=== PATIENT | male | born 1940 | race African-American/Black ===

== ENCOUNTER 2019-07-21 11:10 | Observation (INO) | payer OTHER ==
--- NOTE | 2019-07-21 12:29 | RAD REPORT ---
EXAM DESCRIPTION: RAD - Chest Single View - 07/21/2019 12:09 pm CLINICAL HISTORY: CHEST PAIN COMPARISON: None TECHNIQUE: AP portable chest image was obtained 07/21/2019 12:09 pm . FINDINGS: No focal mass or consolidation. No failure or volume overload. Interstitial pattern is mil dly prominent but may be baseline for the patient. Heart and vasculature are normal. No measurable pl eural effusion and no pneumothorax. No acute bony abnormality seen. No acute aortic findings suspecte d. IMPRESSION: No focal acute cardiopulmonary process. Interstitial prominence is mild and may be baseline.
[2019-07-21] MEDS ORDERED: NA CHLORIDE 0.9% 1,000 ML ONE (12:32)
[2019-07-21 12:51] LABS: Absolute Lymphocytes (CBC) 1.9 K/uL (0.7-4.9); Basophils % 0.5 % (0-1.3); Hematocrit 41.6 % (39.6-49.0); Lymphocytes % 21.5 % (15.3-44.8); MPV 9.1 fL (7.6-11.3)
[2019-07-21 13:10] LABS: ALT/SGPT 16 U/L (12-78); AST/SGOT 41 U/L (15-37); Albumin 3.4 g/dL (3.4-5.0); Alkaline Phosphatase 113 U/L (45-117); BUN Blood Urea Nitrogen 59 mg/dL (7-18); Bicarbonate 29 mmol/L (21-32); Bilirubin Direct 0.2 mg/dL (0-0.2); Bilirubin Total 0.6 mg/dL (0.2-1.0); Glucose Level 182 mg/dL (74-106); NT PRO-BNP 294 pg/mL (<450); Potassium 3.9 mmol/L (3.5-5.1); Protein, Total 8.2 g/dL (6.4-8.2); Sodium Level 145 mmol/L (136-145); Troponin (Emerg Dept Use Only) < 0.02 ng/mL (0.0-0.045)
--- NOTE | 2019-07-21 14:39 | EDPHYS ---
Physician Documentation [facility] Name: Hernan Harvey Age: 78 yrs Sex: Male : 1940 Arrival Date: 07/21/2019 Time: 11:14 Bed 6 Private MD: Felecia Ho F ED Physician Valentino Gann HPI: 07/20 11:45 This 78 yrs old Black Male presents to ER via Wheelchair with complaints of Chest Pain. rn 11:45 The patient or guardian reports chest pain that is located primarily in the substernal rn area. 11:46 Onset: 6 day(s) ago. rn 11:46 The pain radiates to back. Associated signs and symptoms: The patient has no apparent rn associated signs or symptoms, Pertinent negatives: abdominal pain, cough, diaphoresis, near syncope, shortness of breath, syncope, vomiting. Duration: The patient or guardian reports multiple episodes, that are intermittent. Modifying factors: The symptoms are alleviated by nothing. the symptoms are aggravated by nothing. Severity of pain: At its worst the pain was moderate in the emergency department the pain has improved. The patient has not experienced similar symptoms in the past. Reports substernal chest pain, shoots around chest and goes to midscapular region, no recent trauma, neg for fever/cough. Reports + sob with exertion. No swelling. No known heart attack or heart problems. No abd pain/vomiting/diarrhea. . Historical: - Allergies: 11:34 No Known Allergies; ss - PMHx: 11:34 Hypertension; Diabetes - NIDDM; ss - PSHx: 11:34 Hernia repair; ss - Immunization history:: Adult Immunizations up to date. - Social history:: Smoking status: Patient denies any tobacco usage or history of. - Family history:: not pertinent. - Hospitalizations: : No recent hospitalization is reported. ROS: 11:46 Constitutional: Negative for fever, chills, and weight loss, Eyes: Negative for injury, rn pain, redness, and discharge, Cardiovascular: + chest pain and sob Respiratory: Negative for cough, wheezing, and pleuritic chest pain, Abdomen/GI: Negative for abdominal pain, nausea, vomiting, diarrhea, and constipation, Back: Negative for injury and pain, MS/Extremity: Negative for injury and deformity, Skin: Negative for injury, rash, and discoloration, Neuro: Negative for headache, weakness, numbness, tingling, and seizure. Exam: 11:46 Constitutional: Thin male, no acute distress Head/Face: Normocephalic, atraumatic. 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 No cyanosis. Respiratory: Mild tachypnea with diminished bilateral breath sounds at bases. Abdomen/GI: soft, non-tender. Skin: Warm, dry, + poor skin turgor. MS/ Extremity: Pulses equal, no cyanosis. Neurovascular intact. Full, normal range of motion. Equal circumference. Neuro: Awake and alert, GCS 15, oriented to person, place, time, and situation. Cranial nerves II-XII grossly intact. Motor strength 4/5 in all extremities. Sensory grossly intact. Unable to stand from seated position without help 12:04 ECG was reviewed by the Attending Physician. rn Vital Signs: 11:32 BP 103 / 61; Pulse 117; Resp 19; Temp 97.0(TE); Pulse Ox 99% on R/A; Weight 77.11 kg; ss Height 5 ft. 10 in. (177.80 cm); Pain 6/10; 12:15 BP 113 / 80; Pulse 115; Resp 19; Pulse Ox 100% ; lt1 13:22 BP 104 / 76; Pulse 108; Resp 18; Pulse Ox 100% on R/A; em 14:31 BP 132 / 87; Pulse 111; Resp 16; Pulse Ox 99% ; hb 15:27 BP 111 / 87; Pulse 110; Resp 16; Pulse Ox 97% on R/A; Pain 0/10; ss 11:32 Body Mass Index 24.39 (77.11 kg, 177.80 cm) MDM: 11:39 Patient medically screened. rn 14:36 Differential diagnosis: acute myocardial infarction, acute pericarditis, coronary rn artery disease chest wall pain, costochondritis, pleurisy, pneumothorax, stable angina, unstable angina. The patient was given aspirin in the Emergency Department. 14:37 Data reviewed: vital signs, nurses notes, lab test result(s), EKG, radiologic studies, rn plain films, and as a result, I will admit patient. Counseling: I had a detailed discussion with the patient and/or guardian regarding: the historical points, exam findings, and any diagnostic results supporting the discharge/admit diagnosis, lab results, radiology results, the need for further work-up and treatment in the hospital. Admission orders: after a detailed discussion of the patient's condition and case, the admit orders are written by me. ED course: Pt without acute findings in ER, will admit to Dr. Ho for further testing and cardiology consult.. 07/20 11:45 Order name: Basic Metabolic Panel; Complete Time: 14:36 rn 07/20 11:45 Order name: CBC with Diff; Complete Time: 13:03 rn 07/20 11:45 Order name: LFT's; Complete Time: 14:36 rn 07/20 11:45 Order name: NT PRO-BNP; Complete Time: 14:36 rn 07/20 11:45 Order name: Troponin (emerg Dept Use Only); Complete Time: 14:36 rn 07/20 11:45 Order name: XRAY Chest (1 view); Complete Time: 12:34 07/20 11:45 Order name: EKG; Complete Time: 11:45 rn 07/20 11:45 Order name: Cardiac monitoring; Complete Time: 11:56 rn 07/20 11:45 Order name: EKG - Nurse/Tech; Complete Time: 12:16 07/20 11:45 Order name: IV Saline Lock; Complete Time: 12:16 07/20 11:45 Order name: Labs collected and sent; Complete Time: 12:16 07/20 11:45 Order name: O2 Per Protocol; Complete Time: 11:56 rn 07/20 11:45 Order name: O2 Sat Monitoring; Complete Time: 11:56 rn EC:04 Rate is 113 beats/min. Rhythm is regular. QRS [place] is Normal. OR interval is normal. rn QRS interval is normal. QT interval is normal. No Q waves. T waves are Normal. No ST changes noted. Clinical impression: Sinus tachycardia. Interpreted by me. Reviewed by me. Administered Medications: 12:29 Drug: NS 0.9% 250 ml Route: IV; Rate: bolus; Site: left antecubital; em 13:00 Follow up: IV Status: Completed infusion; IV Intake: 250ml hb 15:00 Follow up: IV Status: Completed infusion ss 15:24 Drug: NS 0.9% 250 ml Route: IV; Rate: bolus; Site: left antecubital; 15:42 Follow up: IV Status: Completed infusion; IV Intake: 250ml hb 15:24 Drug: Aspirin Chewable Tablet 324 mg Route: PO; ss 15:40 Follow up: Response: No adverse reaction hb Disposition: 07/21/19 14:38 Hospitalization ordered by Felecia Ho for Observation. Preliminary diagnosis are Chest pain, unspecified, Dehydration, Hypercalcemia. - Bed requested for Telemetry/MedSurg (observation). - Status is Observation. ss - Condition is Stable. - Problem is new. - Symptoms have improved. Signatures: Dispatcher [employer] EDMS Slime Da Silva Edgar, RN SERGEI em Valentino Gann MD MD rn Smirch, Shelby, RN RN ss Rubina Bridges RN Corrections: (The following items were deleted from the chart) 14:38 14:38 Hospitalization Ordered by Felecia Ho MD for Observation. Preliminary rn diagnosis is Chest pain, unspecified; Dehydration. Bed requested for Telemetry/MedSurg (observation). Status is Observation. Condition is Stable. Problem is new. Symptoms have improved. rn 15:17 14:38 07/21/2019 14:38 Hospitalization Ordered by Felecia Ho MD for Observation. bd Preliminary diagnosis is Chest pain, unspecified; Dehydration; Hypercalcemia. Bed requested for Telemetry/MedSurg (observation). Status is Observation. Condition is Stable. Problem is new. Symptoms have improved. rn 15:42 15:17 07/21/2019 14:38 Hospitalization Ordered by Felecia Ho MD for Observation. ss Preliminary diagnosis is Chest pain, unspecified; Dehydration; Hypercalcemia. Bed requested for Telemetry/MedSurg (observation). Status is Observation. Condition is Stable. Problem is new. Symptoms have improved. bd
--- NOTE | 2019-07-21 14:39 | ER ---
Nurse's Notes [facility] Name: Hernan Harvey Age: 78 yrs Sex: Male : 1940 Arrival Date: 07/21/2019 Time: 11:14 Bed 6 Private MD: Felecia Ho F Diagnosis: Chest pain, unspecified;Dehydration;Hypercalcemia Presentation: 07/20 11:32 Chief complaint: Patient states: Sent by Dr. Ho for further evaluation of ss intermittent CP and upper back pain x 6 days. Coronavirus screen: Proceed with normal triage. Patient denies a cough. Patient denies shortness of breath or difficulty breathing. Patient denies measured and/or subjective temperature greater than 100.4F prior to today's visit. Patient denies travel on a cruise ship or to a country the [facility]NOTE 3] currently lists as an affected area. Patient denies contact with known and/or suspected case of COVID-19. Ebola Screen: Patient denies exposure to infectious person. Patient denies travel to an Ebola-affected area in the 21 days before illness onset. Initial Sepsis Screen: Does the patient meet any 2 criteria? No. Patient's initial sepsis screen is negative. Does the patient have a suspected source of infection? No. Patient's initial sepsis screen is negative. Risk Assessment: Do you want to hurt yourself or someone else? Patient reports no desire to harm self or others. Onset of symptoms was July 16, 2019. 11:32 Method Of Arrival: Wheelchair ss 11:32 Acuity: TABATHA 3 ss Historical: - Allergies: 11:34 No Known Allergies; ss - PMHx: 11:34 Hypertension; Diabetes - NIDDM; ss - PSHx: 11:34 Hernia repair; ss - Immunization history:: Adult Immunizations up to date. - Social history:: Smoking status: Patient denies any tobacco usage or history of. - Family history:: not pertinent. - Hospitalizations: : No recent hospitalization is reported. Screenin:00 Abuse screen: Denies threats or abuse. Nutritional screening: No deficits noted. em Tuberculosis screening: No symptoms or risk factors identified. Fall Risk Ambulatory Aid- Crutches/Cane/Walker (15 pts). Gait- Weak (10 pts.). Total Davey Fall Scale indicates Low Risk Score (25-44 pts). Side Rails Up X 2 Placed close to Nursing Station. Assessment: 13:22 Reassessment: Patient appears in no apparent distress at this time. Patient and/or em family updated on plan of care and expected duration. Pain level reassessed. Patient is alert, oriented x 3, equal unlabored respirations, skin warm/dry/pink. Patient denies pain at this time. 14:26 Also complains of. Reassessment: Patient appears in no apparent distress at this time. hb Patient and/or family updated on plan of care and expected duration. Pain level reassessed. Patient is alert, oriented x 3, equal unlabored respirations, skin warm/dry/pink. 15:28 Reassessment: Patient appears in no apparent distress at this time. Patient and/or ss family updated on plan of care and expected duration. Pain level reassessed. Patient is alert, oriented x 3, equal unlabored respirations, skin warm/dry/pink. Room has been assigned for admission. Pt is awaiting for Dr. Gann to speak with him about plan of care. Vital Signs: 11:32 BP 103 / 61; Pulse 117; Resp 19; Temp 97.0(TE); Pulse Ox 99% on R/A; Weight 77.11 kg; ss Height 5 ft. 10 in. (177.80 cm); Pain 6/10; 12:15 BP 113 / 80; Pulse 115; Resp 19; Pulse Ox 100% ; lt1 13:22 BP 104 / 76; Pulse 108; Resp 18; Pulse Ox 100% on R/A; em 14:31 BP 132 / 87; Pulse 111; Resp 16; Pulse Ox 99% ; hb 15:27 BP 111 / 87; Pulse 110; Resp 16; Pulse Ox 97% on R/A; Pain 0/10; ss 11:32 Body Mass Index 24.39 (77.11 kg, 177.80 cm) ED Course: 11:14 Patient arrived in ED. mr 11:14 Felecia Ho MD is Private Physician. mr 11:33 Triage completed. ss 11:34 Arm band placed on right wrist. ss 11:39 Valentino Gann MD is Attending Physician. rn 11:56 Rubina Bridges RN is Primary Nurse. hb 12:00 Patient has correct armband on for positive identification. Placed in gown. Bed in low em position. Call light in reach. Adult w/ patient. teletypesetter monitor on. Pulse ox on. NIBP on. 12:00 Patient maintains SpO2 saturation greater than 95% on room air. em 12:09 XRAY Chest (1 view) In Process Unspecified. EDMS 12:15 Initial lab(s) drawn, by me, sent to lab. Inserted saline lock: 22 gauge in left lt1 antecubital area, using aseptic technique. 13:19 Notified ED physician of a critical lab result(s). calcium-13.1. sv 14:38 Felecia Ho MD is Hospitalizing Provider. rn 15:40 No provider procedures requiring assistance completed. Patient admitted, IV remains in ss place. Administered Medications: 12:29 Drug: NS 0.9% 250 ml Route: IV; Rate: bolus; Site: left antecubital; em 13:00 Follow up: IV Status: Completed infusion; IV Intake: 250ml hb 15:00 Follow up: IV Status: Completed infusion ss 15:24 Drug: NS 0.9% 250 ml Route: IV; Rate: bolus; Site: left antecubital; ss 15:42 Follow up: IV Status: Completed infusion; IV Intake: 250ml hb 15:24 Drug: Aspirin Chewable Tablet 324 mg Route: PO; ss 15:40 Follow up: Response: No adverse reaction hb Intake: 13:00 IV: 250ml; Total: 250ml. hb 15:42 IV: 250ml; Total: 500ml. hb Outcome: 14:38 Decision to Hospitalize by Provider. rn 15:40 Admitted to Tele accompanied by [facility], via stretcher, room 204, with chart, Report ss called to SERGEI [place] 15:40 Condition: good 15:40 Instructed on the need for admit, Demonstrated understanding of instructions. 15:42 Patient left the ED. ss Signatures: Dispatcher [employer] EDMS Aidee Rodrigues RN RN sv Rivera, Mary mr Munoz, Edgar RN Valentino Gonzalez MD MD rn Smirch, Shelby, RN RN ss Baxter, Heather, RN RN hb Tran, Leah lt1
[2019-07-21] MEDS ORDERED: ASPIRIN 81 MG CHEWABLE TABLET ONE (15:17)
[2019-07-21] MEDS ORDERED: NA CHLORIDE 0.9% 250 ML ONE (15:18)
[2019-07-21 16:10] VITALS: BMI 24.3
[2019-07-21] MEDS ORDERED: ONDANSETRON 4 MG/2 ML VIAL IV PRN (16:10)
[2019-07-21] MEDS: NA CHLORIDE 0.9% 1,000 ML IV SCH (17:21)
[2019-07-21] MEDS ORDERED: PNEUMOCOCCAL VACCINE 0.5 ML IMVAC ONE (21:00)
[2019-07-21] MEDS ORDERED: MAGNESIUM HYDROXIDE 8% 30 ML PO ONE (22:00)
[2019-07-21] MEDS ORDERED: CLONIDINE 0.3 MG/PATCH TD ONE (22:54)
--- NOTE | 2019-07-22 01:48 | HP ---
Date of Admission: 07/21/2019 History Of Present Illness: A 78-year-old male with multiple medical problems including coronary art kar disease. He has been having, what he describes as, chest pain across his chest for about 2 weeks now, comes off and on, would stay for minutes or hours. However, he said also it is sometimes relat ed to his position, if he is lying down or standing up gives him relief. He also said that he has be en having more shortness of breath on activity like walking half a block or so he could get short of breath. He also had a complaint of low back pain in the lumbosacral area, more on the left, but no o ther radiation. The patient voiced no other complaints. Review of Systems: Cardiovascular: No palpitations, no dizziness. Respiratory: As above. Skeletomuscular: As above. Gastrointestinal: No complaints. Genitourinary: No complaints. Neurological: No complaints. Past Medical History: 1.Hypertension. 2.Type 2 diabetes. 3.Hyperlipidemia. 4.Coronary artery disease. 5.Multiple osteoarthritis. 6.Chronic obstructive pulmonary disease. 7.History of prostate cancer for which he followed with Dr. Reynolds. Allergies: NO KNOWN DRUG ALLERGIES. Social History: He stopped smoking. Denies alcohol or IV drug abuse history. Family History: Noncontributing. Medications: Include, atorvastatin 20 mg p.o. daily, benazepril 10 mg p.o. daily, amlodipine 5 mg p. o. daily, clonidine 0.3 mg, q.24 hours, hydrochlorothiazide 12.5 mg p.o. daily, potassium chloride 10 mEq p.o. daily, meloxicam 7.5 mg b.i.d. p.r.n. Physical Examination: Vital Signs: Blood pressure 113/80, pulse 110, pulse oximetry more than 90% on 100% O2. General: The patient was afebrile. Heart: Tachycardic, regular rate and rhythm. Chest: Clear to auscultation. Abdomen: Soft, nontender. No hepatosplenomegaly. Bowel sounds normoactive. Extremities: No edema. No cyanosis. Peripheral pulses are felt. Neurological: Alert, oriented, nonfocal. Grossly intact. Spine: No tenderness in his lumbar spine. The patient was using a wheelchair for his low back pain and has osteoarthritis multiple. Imaging: Chest x-ray, no acute pathology. EKG reported to me by ER physician is sinus tachycardia. CBC noted. Chemistry; BUN 59, creatinine 1.73, glucose 135, calcium 13.1. Assessment And Plan: 1.Chest pain in the precordial area. Patient sees Cardiology, will draw serial cardiac enzymes. Th e stress test was negative and we will repeat EKG. We will follow Cardiology recommendations. 2.Volume depletion, evident by increased BUN and creatinine ratio on high calcium. The patient has been put on normal saline at 75 mg an hour. We will resume his home medications for his chronic medi brianda illnesses, put the patient on oxygen protocol. Repeat his labs in the morning. Look orders for details. MFS/MODL Voice ID: [id number]
[2019-07-22 04:20] LABS: Absolute Lymphocytes (CBC) 2.1 K/uL (0.7-4.9); Basophils % 0.8 % (0-1.3); Hematocrit 34.4 % (39.6-49.0); Lymphocytes % 23.3 % (15.3-44.8); MPV 9.1 fL (7.6-11.3); RBC Red Blood Cell Count 4.03 M/uL (4.33-5.43)
[2019-07-22 04:43] LABS: Potassium 3.5 mmol/L (3.5-5.1)
[2019-07-22 05:09] LABS: Blood Morphology Comment NOTED (NOT SEEN); Burr Cells 2+; Platelet Estimate DECR; Urine White Blood Cell Casts OK
[2019-07-22] MEDS: NA CHLORIDE 0.9% 1,000 ML IV SCH (05:44)
--- NOTE | 2019-07-22 07:02 | EKG ---
Test Date: 2019-07-21 Test Time: 12:03:33 Continuous Improvement Lead: FELY MEASUREMENT RESULTS: Intervals: Rate: 113 MI: 126 QRSD: 72 QT: 342 QTc: 469 [place]: P: 64 MI: 126 QRS: 15 T: 71 INTERPRETIVE STATEMENTS: Sinus tachycardia Otherwise normal ECG Compared to ECG 10/25/2005 12:55:29 Sinus rhythm no longer present Myocardial infarct finding no longer present Electronically Signed On 07-22-19 07:00:14 CDT by Goldy Bowden
[2019-07-22] MEDS ORDERED: REGADENOSON 0.4 MG/5 ML SYR IV ONE (08:17)
[2019-07-22] MEDS ORDERED: ASPIRIN EC 81 MG TAB PO SCH (09:00)
--- NOTE | 2019-07-22 09:54 | RAD REPORT ---
EXAM DESCRIPTION: NM - Rest Stress Cardiac Imaging - 07/22/2019 9:42 am CLINICAL HISTORY: Chest pain. COMPARISON: None. TECHNIQUE: The patient was administered approximately 10mCi of Tc 99m Sestamibi prior to resting SPE CT imaging of the heart. The patient was then administered approximately 30 mCi of Tc 99m Sestamibi f ollowing exercise or pharmacologic stress. Multiplanar SPECT images were reviewed. FINDINGS: There is uniformity of radiotracer uptake involving the entire left ventricular myocardiu m on rest and stress images. The left ventricular ejection fraction equals 65% IMPRESSION: Negative for a myocardial perfusion defect
[2019-07-22 12:26] VITALS: BP 140/73; TEMP 97.8
[2019-07-22 12:55] VITALS: O2SAT 100
--- NOTE | 2019-07-22 14:32 | TREADPHA ---
DX: CHEST PAIN Date of Study: 07/22/2019 Ht: 5' 10 " Wt: 170 lb 0 oz Consulting Physician: CYNTHIA MEDICATIONS: ASPIRIN, CATAPRES, ZOFRAN HISTORY: 78 YEAR OLD MALE WITH COMPLAINTS OF CHEST PAIN. HISTORY OF DIABETES, SMOKES ONE CIGARETTE DAILY, NON DRINKER. PHYSICIAL EXAMINATION: RESTING B.P.: 140/103 RESTING H.R.: 109 RESTING EKG: NORMAL SINUS RHYTHM PROTOCOL: LEXISCAN EXERCISE TIME: 3:30 B.P. AT [place]AK STRESS: 134/71 IMPRESSION: LEXISCAN INJECTED, FOLLOWED BY CARDIOLITE PER PROTOCOL. SEE NUCLEAR MEDICINE REPORT. NO SUPRAVENTRICULAR TACHYCARDIA, VENTRICULAR TACHYCARDIA, PREMATURE ATRIAL COMPLEXES OR PREMATURE VENTRICULAR COMPLEXES NOTED. PATIENT REPORTED 5/10 CHEST PAIN PRIOR TO PROCEDURE.
--- NOTE | 2019-07-22 23:21 | CON ---
Date of Consultation: 07/22/2019 The patient was admitted to Dr. Ho's service on 07/21/2019. Reason For Consultation: Chest pain and hypertension. History Of Present Illness: Mr. Harvey is a 78-year-old black male, has a history of hypertension, diabetes, dyslipidemia, came in with diffuse chest pain throughout his chest, but sometime it would r adiate to the back into the left shoulder with some nausea, but no diaphoresis, shortness of breath, PND, orthopnea, pedal edema, palpitations, or syncope. He denied any fever or chills or cough. Symp toms have been going on intermittently for few days. He was found to have a normal chest x-ray. EKG showed LVH. Creatinine was 1.73. He had a calcium of 13.1. Past Medical History: Includes hypertension, dyslipidemia, and diabetes. Allergies: NONE. Review of Systems: Negative. Social History: Negative. Family History: Negative. Medications: At home include, 1.Lipitor. 2.Norvasc. 3.Benazepril. 4.Mobic. 5.Potassium. 6.Clonidine. 7.Hydrochlorothiazide. Physical Examination: Vital Signs: Stable. He was afebrile. He was in sinus rhythm. HEENT: Negative. Neck: Supple without any bruit, lymphadenopathy, JVD, or thyromegaly. Chest: Clear to auscultation and percussion. Cardiac: Revealed a regular rhythm and rate with an S4 gallops. No murmurs or rubs. Abdomen: Benign. Extremities: Revealed no clubbing, cyanosis, or edema. Skin: Dry and intact. Neurologic: Nonfocal. Impression And Plan: 1.Chest pain, atypical in a patient with multiple cardiac risk factors. Echocardiogram and Lexiscan are pending. 2.Hypertension, poorly controlled. 3.Dyslipidemia, on Lipitor. 4.Diabetes. 5.Hypercalcemia. 6.Renal insufficiency, stage III. 7.We will see what the echocardiogram and Lexiscan shows before making further decision from a cardi ac standpoint. His renal dysfunction needs to be addressed. His calcium needs to be addressed and I will leave that up to Dr. Ho. NB/MODL Voice ID: [id number] Report ID: [id number]
--- NOTE | 2019-07-23 03:02 | DS ---
Date of Discharge: 07/22/2019 Hospital Course: A 78-year-old male who was admitted to the hospital because of a complaint of chest pain across his chest for about 2 weeks. He also been having some chronic flare-up of osteoarthriti s pain and low back pain and has been feeling weak and fatigued. Past Medical History: As per admit note. Social History: As per admit note. Family History: As per admit note. Medications: As per admit note. Allergies: PER ADMIT NOTE. Physical Examination: As per admit note. Diagnostic Data: As per admit note. Hospital Course: The patient was admitted to the hospital observation for his complaint of chest jean paul n being high risk because of history of chronic disease in the past. We kept him on his home medicat ions for his chronic medical illnesses. Serial cardiac enzymes were negative. Dr. Bowden seen the patient and they did a stress Myoview test on his heart. Result of that was no ischemia. The patien t himself did not have any more complaints; however, also his chest pain even is not there this marileeni rani and he is feeling well. At this point, we thought we can carry on management with the patient as an outpatient. Also his weakness and fatigue were thought to be secondary to volume depletion evident by prerenal azotemia and failure. We put him on IV fluids and that improved his kidney functions wi th a gap this morning showing a BUN of 59 and creatinine 1.35. As mentioned, we will carry on workup for his low back pain and other complaints as an outpatient. The patient will see me within a day o r 2. I stopped his hydrochlorothiazide and potassium because he was dry, kept him on the rest of his home medications. We thought if it is okay with Cardiology, we will go ahead and discharge the patient. Look discharge orders for details. MFS/MODL Voice ID: [id number] Report ID: [id number]
[2019-07-28] MEDS ORDERED: CLONIDINE 0.3 MG/PATCH TD SCH (09:00)
== END 2019-07-22 13:23 | disposition home or self-care (01) ==
LOC: ER 11:10 → ERHOLD 14:51 → 2ND 15:41
PROVIDERS: ADMIT Internal Medicine; ATTEND Internal Medicine
DX: R07.89 Other chest pain (principal); E83.52 Hypercalcemia; E86.0 Dehydration; I10 Essential (primary) hypertension; E78.5 Hyperlipidemia, unspecified; E11.9 Type 2 diabetes mellitus without complications; I25.10 Atherosclerotic heart disease of native coronary artery without angina pectoris; M15.9 Polyosteoarthritis, unspecified; J44.9 Chronic obstructive pulmonary disease, unspecified; Z85.46 Personal history of malignant neoplasm of prostate; Z87.891 Personal history of nicotine dependence
CPT/HCPCS: 93005; 93017; 85025 ×2; 80048 ×2; 36415; 82947 ×4; 80076; 84484 ×3; 83880; 71045; 90471; 90670; 78452; 96360; 99285; J2785; J7030 ×4; A9500; G0378 ×3

== ENCOUNTER 2019-07-28 12:32 | Observation (INO) | payer OTHER ==
[2019-07-28 13:08] LABS: Absolute Lymphocytes (CBC) 1.7 K/uL (0.7-4.9); Basophils % 0.8 % (0-1.3); Hematocrit 36.2 % (39.6-49.0); Lymphocytes % 21.4 % (15.3-44.8); MPV 8.6 fL (7.6-11.3); RBC Red Blood Cell Count 4.26 M/uL (4.33-5.43)
[2019-07-28] MEDS ORDERED: FLEET ENEMA ADULT PR ONE (13:13)
[2019-07-28] MEDS ORDERED: NA CHLORIDE 0.9% 500 ML ONE ×2 (13:14→14:52)
[2019-07-28 13:27] LABS: ALT/SGPT 14 U/L (12-78); AST/SGOT 24 U/L (15-37); Alkaline Phosphatase 99 U/L (45-117); BUN Blood Urea Nitrogen 26 mg/dL (7-18); Bicarbonate 27 mmol/L (21-32); Bilirubin Direct 0.3 mg/dL (0-0.2); Bilirubin Total 0.8 mg/dL (0.2-1.0); Glucose Level 98 mg/dL (74-106); Lipase 19 U/L (73-393); Potassium 3.2 mmol/L (3.5-5.1); Protein, Total 7.1 g/dL (6.4-8.2); Sodium Level 138 mmol/L (136-145)
[2019-07-28] MEDS ORDERED: POTASSIUM CL 10 MEQ in NA CHLORIDE 0.9% 100 ML IV ONE (14:30)
--- NOTE | 2019-07-28 15:30 | RAD REPORT ---
EXAM DESCRIPTION: CTAbdomen Pelvis W Contrast - 07/28/2019 3:03 pm CLINICAL HISTORY: Abdominal pain. Constipation;Abdominal distention COMPARISON: Chest Single View dated 07/21/2019; Rest Stress Cardiac Imaging dated 07/22/2019; Lumbar S pine 3 Views dated 07/25/2019 TECHNIQUE: Biphasic CT imaging of the abdomen and pelvis was performed with 100 ml non-ionic IV cont rast. All CT scans are performed using dose optimization technique as appropriate and may include automated exposure control or mA/KV adjustment according to patient size. FINDINGS: Linear subsegmental atelectasis is present in both lung bases, greater on the right. The pancreas contains several small rounded low-density lesions most compatible with cysts. The splee n is unremarkable. Pancreas is mildly atrophic without ductal dilatation. A large left adrenal mass i s present measuring 2.8 x 3.7 cm. Right hip adrenal gland is mildly thickened but without mass. Compl ex cystic lesions are present involving both kidneys. Complex cystic lesion right kidney anterior sup erior cortex measures 12 mm. Similar complex cystic lesion is seen involving the posterior cortex of the left kidney measuring 3.1 x 2.0 cm. Additional complex appearing cortical based lesion on the lef t kidney measures 10 mm and inferiorly posteriorly measuring 2.0 x 1.9 cm. Adenopathy is present in the retroperitoneum. For example left para-aortic lymphadenopathy is present measuring 2.7 x 2.7 cm aortocaval adenopathy is present slightly more inferiorly measuring 3.7 x 2.0 cm. Right para-aortic adenopathy is present measuring 2.2 x 1.3 cm. Infrarenal aortic aneurysm is pr esent measuring 5.6 cm in transverse dimension. Aneurysmal dilatation of the right common iliac arter y is also present measuring 3.9 cm. The aneurysms in this region as well as the soft tissue from para -aortic lymphadenopathy appears to result in significant mass effect on the left common iliac vein. T here is somewhat poorly defined filling defect within the left femoral vein which appears expanded. C annot exclude DVT in this region. Lymphadenopathy is present involving the left pelvic sidewall measuring 5.6 x 2.7 cm. Mild adenopathy right pelvic sidewall also present the largest measuring 9 mm in short axis. The prostate gland is s ignificantly enlarged and projects into the bladder base. Small amount of air seen within the bladder . Prominent stool is retained in the rectosigmoid colon with diverticulosis coli noted. No free air or bowel obstruction. No abscess. Small right-sided inguinal hernia containing small loop of small bowel seen without obstruction. Normal appendix. Bony metastatic disease is present with multiple bone lesions evident, most notable in the right dennise c wing, vertebral bodies and right-sided ribs. IMPRESSION: Pathologic lymphadenopathy is present in the retroperitoneum as well as the pelvic sidew all. Bony metastatic lesions are also present along with a high suspicion of a metastatic left adrena l mass. Although primary neoplastic lesion is not definitive, prostate origin may be considered given the lily y significant enlargement of the prostate gland identified. PSA correlation may be useful. Air is present in the urinary bladder is likely representing infection or recent instrumentation. Possible findings of left-sided DVT. Correlation with bilateral venous Doppler of the lower extremity venous systems is recommended. Large infrarenal abdominal aortic aneurysm with right common iliac artery aneurysm. No acute finding related to these aneurysms seen. Bilateral complex cystic renal lesions are present as detailed. Nonemergent follow-up MRI assessment of the kidneys with contrast may be useful. Prominent stool is noted in the rectosigmoid colon with the sigmoid diverticulosis present. No divert iculitis is seen.
[2019-07-28 16:50] LABS: Anisocytosis 1+; Blood Morphology Comment NOTED (NOT SEEN); Platelet Estimate DECR; Poikilocytosis 1+
[2019-07-28] MEDS ORDERED: ENOXAPARIN 80 MG/0.8 ML SQ ONE (17:37)
--- NOTE | 2019-07-28 17:39 | RAD REPORT ---
EXAM DESCRIPTION: US - Extrem Venous W Compress Eulogio - 07/28/2019 5:29 pm CLINICAL HISTORY: rule out DVT Bilateral leg edema and swelling. COMPARISON: Abdomen Pelvis W Contrast dated 07/28/2019 TECHNIQUE: Real-time sonographic interrogation of the left and right lower extremity deep venous sys tems was performed. FINDINGS: Thrombus is present in the left common femoral vein popliteal vein compatible with DVT. No right-sided DVT seen. IMPRESSION: Positive for left-sided DVT.
[2019-07-28] MEDS ORDERED: ONDANSETRON 4 MG/2 ML VIAL IV PRN (20:01)
[2019-07-28 20:51] VITALS: BMI 20.8
[2019-07-28] MEDS: NA CHLORIDE 0.9% 1,000 ML IV SCH (21:13)
[2019-07-29 05:37] LABS: Basophils % 1.4 % (0-1.3); Hematocrit 32.9 % (39.6-49.0); Lymphocytes % 26.1 % (15.3-44.8); MPV 8.8 fL (7.6-11.3); RBC Red Blood Cell Count 3.84 M/uL (4.33-5.43)
[2019-07-29] MEDS: ENOXAPARIN 80 MG/0.8 ML SQ SCH ×3 (05:55→20:17)
[2019-07-29] MEDS: NA CHLORIDE 0.9% 1,000 ML IV SCH ×2 (05:58→16:01)
[2019-07-29 06:01] LABS: BUN Blood Urea Nitrogen 21 mg/dL (7-18); Bicarbonate 25 mmol/L (21-32); Glucose Level 81 mg/dL (74-106); Sodium Level 140 mmol/L (136-145)
[2019-07-29 06:02] LABS: Potassium 3.7 mmol/L (3.5-5.1)
[2019-07-29] MEDS: CLONIDINE 0.1 MG/PATCH TD SCH ×2 (17:00→18:14)
[2019-07-29] MEDS: ENSURE CLEAR 200 ML CAN PO SCH (20:18)
[2019-07-29] MEDS ORDERED: ATORVASTATIN 20 MG TAB PO SCH (21:00)
--- NOTE | 2019-07-29 22:01 | HP ---
Date of Admission: 07/28/2019 History Of Present Illness: The patient is a 79-year-old male who presented to the emergency room wi th abdominal discomfort and pain for few days. He said he has been constipated for about 10 days, brush radhika had a bowel motion. On his workup in the emergency room, the patient was found also to have lef t femoral deep venous thrombosis along with also prostate cancer, metastasis to his iliac bone and ly mph nodes and he was admitted for that. The patient himself also has been complaining of low back pa in for some time. He also has been following with Dr. Reynolds for his prostate cancer for which the pa daniel told me that he had discussed his prostate cancer with Dr. Reynolds and they decided both not to d o anything about it. The patient had mild nausea, no vomiting. He voiced no other complaints. Review of Systems: Cardiovascular: No complaints. Respiratory: No complaints. Skeletomuscular: As above. Gastrointestinal: As above. Genitourinary: No complaints. Neurological: No complaints. Past Medical History: Kindly look his recent admit and discharge notes as he was earlier less than 2 weeks in the hospital for shortness of breath. Social History: Kindly look his recent admit and discharge notes. Family History: Kindly look his recent admit and discharge notes. Medications: Kindly look his recent admit and discharge notes as he was earlier less than 2 weeks in the hospital for shortness of breath. Allergies: KINDLY LOOK HIS RECENT ADMIT AND DISCHARGE NOTES HE WAS EARLIER LESS THAN 2 WEEKS IN [facility] FOR SHORTNESS OF BREATH. Physical Examination: Vital Signs: Blood pressure 140/80, pulse 89, temperature 97.2. Heart: Regular rate and rhythm. Chest: Clear to auscultation. Abdomen: Soft, nontender. No rigidity. No rebound. Bowel sounds are active. Extremities: No edema. No cyanosis. Peripheral pulses are felt. Neurological: Alert, oriented, nonfocal. Grossly intact. Venous study on his lower extremities kala wed positive for left-sided DVT in the left common femoral vein. His abdominal CT showed multiple findings including a lot of stools in his colon along with having bi lateral complex cystic renal lesions along with lymph nodes enlarged in the retroperitoneal area susp icion of metastatic disease. He had multiple lesions in the right iliac wing and vertebral bodies on the right side also and he had an abdominal aortic aneurysm. No acute findings. Look fo r report for details. Laboratory Data: CBC 7.8, hemoglobin 10.8, hematocrit 32.9, platelets 104. Chemistry noted with a B UN 21, creatinine of 0.85. Assessment And Plan: 1.Patient had left-sided lower extremity deep venous thrombosis. He has been put on Lovenox 70 mg s ubcutaneous q.12 hours. We will change him to Xarelto. 2.Metastatic prostate cancer. I have asked Dr. Reynolds to see the patient, although they have decided for not to do anything, but maybe some palliative treatment at least because I think it is causing h is back pain and his low back pain, the patient is not able to ambulate as much with that. 3.Chronic medical problems. We will continue his home medications for his chronic medical illnesses . Look orders for details. MFS/MODL Voice ID: [id number]
--- NOTE | 2019-07-29 22:31 | CON ---
History: A 78-year-old male with a history of low grade prostate cancer. He refused treatment 2-3 y ears ago, did not want anything to be done, did not want any rebiopsy. Has an elevated PSA. He said he was old enough and when it is time to , it is time to . No problems. Now he comes in for weight loss about 40-pound weight loss and he had a CT scan showing lymphadenopathy in the pelvis and abdomen consistent with prostate cancer and pathological lymphadenopathy in the retroperitoneum as w ell as the pelvic sidewall. Bony metastatic lesions are also present, very high suspicion for prosta te cancer and metastatic to the left adrenal gland. Discussed it with the patient, he does not want anything done anymore, does not want any biopsy, does not want any treatment, does not want to see an oncologist, he just wishes to be left alone to be made DNR. Discussed with his primary doctor, Dr. Ho. No further intervention will be necessary according to the patient. Past Medical History: Hypertension, prostate cancer, diabetes type 2, hyperlipidemia, Crohn disease, multiple osteoarthritis, COPD, history of prostate cancer. Allergies: NO KNOWN DRUG ALLERGIES. Social History: Stopped smoking. Denies alcohol, IV drug use. Family History: Noncontributory. Medications: Include atorvastatin, Benazepril, amlodipine, clonidine, hydrochlorothiazide, potassium chloride, meloxicam. Physical Examination: Vital Signs: Temperature 97.2, pulse 89, respiratory rate 18, BP 143/81, saturations 99%. HEENT: Atraumatic, normocephalic. Lungs: Clear. Heart: S1, S2. Abdomen: Soft and nontender. Extremities: Normal range of motion. Laboratory Studies: H and H are 10 and 33, platelet count 104. Chemistry shows sodium 140, potassiu m 3.7, chloride 104, carbon dioxide 25, BUN 21, creatinine 0.9, GFR greater than 90, glucose 81, calc ium 9.8. No UA. Assessment And Plan: Most likely metastatic prostate cancer stage IV. The patient would need androg en deprivation plus or minus chemotherapy. The patient refused all intervention for prostate cancer, wishes to be left alone, made DNR. He is conscious and clear and knows what the repercussions for h is decision is. He knows that he will very likely soon possibly within the next 6 months. I hav e discussed this with Dr. Ho, his primary doctor and also the head nurse. CHON/NETO Voice ID: [id number] Report ID: [id number]
[2019-07-30 06:32] LABS: Potassium 3.4 mmol/L (3.5-5.1); Sodium Level 144 mmol/L (136-145)
[2019-07-30 06:37] LABS: Glucose Level 96 mg/dL (74-106)
[2019-07-30 06:38] LABS: BUN Blood Urea Nitrogen 13 mg/dL (7-18); Bicarbonate 24 mmol/L (21-32)
[2019-07-30 07:20] LABS: Absolute Lymphocytes (CBC) 1.8 K/uL (0.7-4.9); Basophils % 0.9 % (0-1.3); Hematocrit 31.5 % (39.6-49.0); Lymphocytes % 26.5 % (15.3-44.8); RBC Red Blood Cell Count 3.71 M/uL (4.33-5.43)
[2019-07-30 08:34] VITALS: O2SAT 95
[2019-07-30] MEDS ORDERED: BENAZEPRIL 10 MG TAB PO SCH (09:00)
[2019-07-30] MEDS: ENSURE CLEAR 200 ML CAN PO SCH (09:00)
[2019-07-30] MEDS ORDERED: HOME MED 1 EA UNK (Hydrochlorothiazide [Hydrochlorothiazide] 12.5 MG) PO SCH (09:00)
[2019-07-30] MEDS ORDERED: hydroCHLOROthiazide 12.5 MG CAP PO SCH (09:00)
[2019-07-30] MEDS ORDERED: AMLODIPINE 5 MG TAB PO SCH (09:00)
[2019-07-30] MEDS: ENOXAPARIN 80 MG/0.8 ML SQ SCH (09:58)
[2019-07-30] MEDS: NA CHLORIDE 0.9% 1,000 ML IV SCH (12:01)
[2019-07-30 12:09] VITALS: BP 111/73; TEMP 96.9
--- NOTE | 2019-07-31 00:44 | DS ---
Date of Discharge: 07/30/2019 History Of Present Illness: A 78-year-old male who was admitted to the hospital when he presented to the emergency room because of abdominal discomfort and constipation for more than 10 days. However, his workup showed the patient has metastatic prostate cancer. Past Medical History: As per his admit note. Social History: As per his admit note. Family History: As per his admit note. Medication: As per his admit note. Allergies: PER HIS ADMIT NOTE. Physical Examination: As per his admit note. Diagnostic Data: As per his admit note. Hospital Course: The patient was admitted to the hospital. His workup also in the emergency room sh owed that he had left-sided DVT involving the left common femoral vein, so patient was started on low -molecular weight heparin and the patient had enema afterwards his constipation was relieved. Dr. David herman, Urology has seen the patient because of his metastatic prostate cancer and as per Dr. Reynolds, it is a stage IV. He discussed with the patient prospects for what to do for him and the patient refuse d to do anything and it was understanding between him and Dr. Reynolds that he is not to have any interv ention, medication or any other intervention. So from that standpoint, the patient was put DNR. I d iscussed that with him and he confirmed to me that that is what he wants. The patient has been hemod ynamically stable and has no new complaints. It was thought that to discharge the patient for his DV T on Eliquis 10 mg p.o. b.i.d. for 7 days and then 5 mg p.o. b.i.d. thereafter. We will see the diana ent soon in my office to follow up on him and to have him take the lower dosage of Eliquis after a we ek and we will follow up on that. The patient to continue the rest of his home medications. Look discharge orders for details. MFS/MODL Voice ID: [id number] Report ID: [id number]
--- NOTE | 2019-08-04 12:27 | EDPHYS ---
Physician Documentation [facility] Name: Hernan Harvey Age: 78 yrs Sex: Male : 1940 Arrival Date: 07/28/2019 Time: 12:41 Bed 18 Private MD: ED Physician Valentino Gann HPI: 07/27 13:27 This 78 yrs old Black Male presents to ER via EMS with complaints of Constipation, rn Abdominal Pain. 13:27 The patient presents with abdominal pain that is diffuse. Onset: The symptoms/episode rn began/occurred at an unknown time. The symptoms do not radiate. Associated signs and symptoms: Pertinent positives: constipation, Pertinent negatives: nausea and vomiting, anorexia, blood in stools, diarrhea, fever. The symptoms are described as achy, crampy. Modifying factors: The symptoms are alleviated by nothing, the symptoms are aggravated by touching the area. Severity of pain: At its worst the pain was mild in the emergency department the pain is unchanged. The patient has not experienced similar symptoms in the past. Reports admitted to hospital recently, began with constipation since hospitalized, is passing gas, but no bowel movement he states for 2 weeks. No blood in stool. No hx of obstruction. . Historical: - Allergies: 12:48 No Known Allergies; iw - PMHx: 12:48 Diabetes - NIDDM; Hypertension; iw - PSHx: 12:48 Hernia repair; iw - Immunization history:: Adult Immunizations up to date. - Family history:: not pertinent. - Social history:: Smoking status: Patient denies any tobacco usage or history of. - Hospitalizations: : The patient was recently seen at [facility]. ROS: 13:27 Constitutional: Negative for fever, chills, and weight loss, Neck: Negative for injury, rn pain, and swelling, Cardiovascular: Negative for chest pain, palpitations, and edema, Respiratory: Negative for shortness of breath, cough, wheezing, and pleuritic chest pain, Abdomen/GI: + abd pain and constipation Back: Negative for injury and pain, MS/Extremity: Negative for injury and deformity, Skin: Negative for injury, rash, and discoloration, Neuro: Negative for headache, weakness, numbness, tingling, and seizure. Exam: 13:27 Constitutional: This is a well developed, well nourished patient who is awake, alert, rn and in no acute distress. Head/Face: Normocephalic, atraumatic. ENT: dry MM Cardiovascular: Tachycardic, regular Respiratory: Speaking full sentences. No increased work of breathing, no retractions or nasal flaring. Abdomen/GI: soft, mild lower and periumbilical tenderness, no rebound Skin: Warm, dry MS/ Extremity: Pulses equal, no cyanosis. Neurovascular intact. Full, normal range of motion. Equal circumference. Neuro: Awake and alert, GCS 15, oriented to person, place, time, and situation. Cranial nerves II-XII grossly intact. Motor strength 5/5 in all extremities. Sensory grossly intact. Cerebellar exam normal Vital Signs: 12:42 BP 131 / 79; Pulse 117; Resp 18 S; Temp 97.3; Pulse Ox 98% on R/A; iw 14:07 BP 169 / 86; Pulse 109; Resp 16 S; Pulse Ox 100% on R/A; Weight 74.84 kg; iw 16:40 BP 145 / 83; Pulse 115; Resp 18 S; Pulse Ox 99% on R/A; iw 18:00 BP 131 / 98; Pulse 109; Resp 18 S; Pulse Ox 97% on R/A; iw 19:30 BP 147 / 75; Pulse 108; Resp 18; Pulse Ox 98% on R/A; wh MDM: 12:42 Patient medically screened. rn 17:25 Differential diagnosis: bowel obstruction, non-specific abd pain, Ureterolithiasis, rn dehydration, constipation. Data reviewed: vital signs, nurses notes, lab test result(s), radiologic studies, CT scan, doppler, and as a result, I will admit patient. Counseling: I had a detailed discussion with the patient and/or guardian regarding: the historical points, exam findings, and any diagnostic results supporting the discharge/admit diagnosis, lab results, radiology results, the need for further work-up and treatment in the hospital. Admission orders: after a detailed discussion of the patient's condition and case, the admit orders are written by me. ED course: Pt with new DVT and likely metastatic cancer, prostate possible primary, has seen Dr. Reynolds for prostate, will place consult. Dr. Ho did not answer, left message. Lovenox given for DVT. . 07/27 12:47 Order name: Basic Metabolic Panel; Complete Time: 13:41 rn 07/27 12:47 Order name: CBC with Diff; Complete Time: 16:52 rn 07/27 12:47 Order name: Hepatic Function; Complete Time: 13:41 rn 07/27 12:47 Order name: Lipase; Complete Time: 13:41 rn 07/27 12:47 Order name: CT Abd/Pelvis - PO and IV Contrast rn 07/27 16:50 Order name: Manual Differential; Complete Time: 16:52 EDMS 07/27 12:47 Order name: IV Saline Lock; Complete Time: 13:14 rn 07/27 12:47 Order name: Labs collected and sent; Complete Time: 13:14 rn 07/27 15:35 Order name: Extrem Venous W Compression Eulogio US rn 07/27 15:46 Order name: CT; Complete Time: 15:49 EDMS Administered Medications: 13:13 Drug: NS 0.9% 500 ml Route: IV; Rate: bolus; Site: left wrist; iw 20:05 Follow up: Response: No adverse reaction; IV Status: Completed infusion 13:50 Drug: Fleet Enema 133 ml Route: TX; iw 16:12 Follow up: Response: No adverse reaction iw 14:35 Drug: Potassium Chloride 10 mEq Route: IV; Rate: calculated rate; Site: left wrist; iw 15:50 Follow up: IV Status: Completed infusion iw 17:45 Drug: Lovenox 1 mg/kg Route: Sub-Q; Site: right lower abdomen; iw 18:01 Follow up: Response: No adverse reaction Disposition: 07/28/19 17:27 Hospitalization ordered by Felecia Ho for Inpatient Admission. Preliminary diagnosis are Acute embolism and thrombosis of unspecified deep veins of left proximal lower extremity, Constipation, unspecified, Dehydration, Possible metastatic cancer. - Bed requested for Telemetry/MedSurg (Inpatient). - Status is Inpatient Admission. wh - Condition is Stable. - Problem is new. - Symptoms are unchanged. Signatures: Dispatcher [employer] EDMS Anne-Marie Whyte RN RN dw Williams, Irene, RN RN iw Nieto, Roman, MD MD rn Habalo, Winsy Corrections: (The following items were deleted from the chart) 19:17 17:27 Hospitalization Ordered by Felecia Ho MD for Inpatient Admission. Preliminary diagnosis is Acute embolism and thrombosis of unspecified deep veins of left proximal lower extremity; Constipation, unspecified; Dehydration; Possible metastatic cancer. Bed requested for Telemetry/MedSurg (Inpatient). Status is Inpatient Admission. Condition is Stable. Problem is new. Symptoms are unchanged. rn 20:06 19:17 07/28/2019 17:27 Hospitalization Ordered by Felecia Ho MD for Inpatient Admission. Preliminary diagnosis is Acute embolism and thrombosis of unspecified deep veins of left proximal lower extremity; Constipation, unspecified; Dehydration; Possible metastatic cancer. Bed requested for Telemetry/MedSurg (Inpatient). Status is Inpatient Admission. Condition is Stable. Problem is new. Symptoms are unchanged. dw
--- NOTE | 2019-08-04 12:27 | ER ---
Nurse's Notes [facility] Name: Hernan Harvey Age: 78 yrs Sex: Male : 1940 Arrival Date: 07/28/2019 Time: 12:41 Bed 18 Private MD: Diagnosis: Acute embolism and thrombosis of unspecified deep veins of left proximal lower extremity;Constipation, unspecified;Dehydration;Possible metastatic cancer Presentation: 07/27 12:42 Chief complaint: EMS states: were called out for [place] abdominal/side pain , also has not iw had a BM X 2 weeks, was recently in hospital for dehydration , denies vomiting, reports loss of appetite. Coronavirus screen: Proceed with normal triage. Patient denies a cough. Patient denies shortness of breath or difficulty breathing. Patient denies measured and/or subjective temperature greater than 100.4F prior to today's visit. Patient denies travel on a cruise ship or to a country the [facility] currently lists as an affected area. Patient denies contact with known and/or suspected case of COVID-19. Ebola Screen: Patient negative for fever greater than or equal to 101.5 degrees Fahrenheit, and additional compatible Ebola Virus Disease symptoms Patient denies exposure to infectious person. Patient denies travel to an Ebola-affected area in the 21 days before illness onset. No symptoms or risks identified at this time. Initial Sepsis Screen: Does the patient meet any 2 criteria? No. Patient's initial sepsis screen is negative. Does the patient have a suspected source of infection? No. Patient's initial sepsis screen is negative. Risk Assessment: Do you want to hurt yourself or someone else? Patient reports no desire to harm self or others. Onset of symptoms was July 13, 2019. 12:42 Method Of Arrival: EMS: [facility] iw 12:42 Acuity: TABATHA 3 iw Historical: - Allergies: 12:48 No Known Allergies; iw - PMHx: 12:48 Diabetes - NIDDM; Hypertension; iw - PSHx: 12:48 Hernia repair; iw - Immunization history:: Adult Immunizations up to date. - Family history:: not pertinent. - Social history:: Smoking status: Patient denies any tobacco usage or history of. - Hospitalizations: : The patient was recently seen at [facility]. Screenin:15 Abuse screen: Denies threats or abuse. Denies injuries from another. Nutritional iw screening: No deficits noted. Tuberculosis screening: No symptoms or risk factors identified. Fall Risk None identified. Assessment: 12:50 General: Appears in no apparent distress. comfortable, Behavior is calm, cooperative. iw Pain: Complains of pain in abdomen. Neuro: Level of Consciousness is awake, alert, obeys commands, Oriented to person, place, time, situation, Moves all extremities. GI: Abdomen is round non-distended, Abd is soft X 4 quads Reports constipation. Derm: Skin is intact, is thin. Musculoskeletal: Range of motion: intact in all extremities. 13:15 Reassessment: pt finished oral contrast. iw 14:08 Reassessment: Patient appears in no apparent distress at this time. Patient and/or iw family updated on plan of care and expected duration. Pain level reassessed. Patient is alert, oriented x 3, equal unlabored respirations, skin warm/dry/pink. fleets enema administered, pt passing gas , states he feels fullness in rectum. 14:59 Reassessment: Patient appears in no apparent distress at this time. pt has small BM iw with liquid and hard stool mixed , diaper changed, pad changed, pt transported to CT. 16:39 Reassessment: Patient appears in no apparent distress at this time. Patient and/or iw family updated on plan of care and expected duration. Pain level reassessed. pt had large BM, thick loose stool noted, pt cleaned, diaper applied, linens changed, waiting for US. 19:15 Reassessment: Patient appears in no apparent distress at this time. Patient and/or wh family updated on plan of care and expected duration. Pain level reassessed. Patient is alert, oriented x 3, equal unlabored respirations, skin warm/dry/pink. Vital Signs: 12:42 BP 131 / 79; Pulse 117; Resp 18 S; Temp 97.3; Pulse Ox 98% on R/A; iw 14:07 BP 169 / 86; Pulse 109; Resp 16 S; Pulse Ox 100% on R/A; Weight 74.84 kg; iw 16:40 BP 145 / 83; Pulse 115; Resp 18 S; Pulse Ox 99% on R/A; iw 18:00 BP 131 / 98; Pulse 109; Resp 18 S; Pulse Ox 97% on R/A; iw 19:30 BP 147 / 75; Pulse 108; Resp 18; Pulse Ox 98% on R/A; ED Course: 12:41 Patient arrived in ED. iw 12:42 Britney Hector, RN is Primary Nurse. iw 12:42 Valentino Gann MD is Attending Physician. rn 12:46 Triage completed. iw 12:48 Arm band placed on. iw 13:00 Initial lab(s) drawn, by me, sent to lab. iw 13:14 Inserted saline lock: 22 gauge in left wrist, using aseptic technique. Blood collected. iw 17:27 Felecia Ho MD is Hospitalizing Provider. rn 17:29 Ultrasound completed. Patient tolerated well. Notified ED Physician miguel ángel. sg3 17:30 Extrem Venous W Compression [place] US In Process Unspecified. EDMS 19:15 Patient has correct armband on for positive identification. Bed in low position. Call light in reach. Side rails up X 1. Pulse ox on. NIBP on. 19:18 Primary Nurse role handed off by Britney Hector RN sg 19:51 Linette Benjamin is Primary Nurse. 20:04 No provider procedures requiring assistance completed. Patient admitted, IV remains in place. Administered Medications: 13:13 Drug: NS 0.9% 500 ml Route: IV; Rate: bolus; Site: left wrist; iw 20:05 Follow up: Response: No adverse reaction; IV Status: Completed infusion 13:50 Drug: Fleet Enema 133 ml Route: MO; iw 16:12 Follow up: Response: No adverse reaction iw 14:35 Drug: Potassium Chloride 10 mEq Route: IV; Rate: calculated rate; Site: left wrist; iw 15:50 Follow up: IV Status: Completed infusion iw 17:45 Drug: Lovenox 1 mg/kg Route: Sub-Q; Site: right lower abdomen; iw 18:01 Follow up: Response: No adverse reaction Outcome: 17:27 Decision to Hospitalize by Provider. rn 20:05 Admitted to Med/surg accompanied by tech, via stretcher, room 202, with chart, Report called to Marly Vicente RN 20:05 Condition: stable 20:05 Instructed on the need for admit. 20:06 Patient left the ED. Signatures: Dispatcher [employer] Giovanni Rios RN RN Britney Hector RN RN iw Valentino Gann MD MD rn [place], Linette Bret, Ani sg3 Corrections: (The following items were deleted from the chart) 17:19 14:07 BP 169 / 86; Pulse 109bpm; Resp 16bpm; Spontaneous; Pulse Ox 100% RA; iw iw
[2019-08-10] MEDS ORDERED: CLONIDINE 0.1 MG/PATCH TD SCH (09:00)
== END 2019-07-30 14:23 | disposition home or self-care (01) ==
LOC: ER 12:32 → INTOOBSV 17:30 → ERHOLD 17:30 → 2ND 19:57
PROVIDERS: ADMIT Internal Medicine; ATTEND Internal Medicine
DX: I82.412 Acute embolism and thrombosis of left femoral vein (principal); C61 Malignant neoplasm of prostate; C77.9 Secondary and unspecified malignant neoplasm of lymph node, unspecified; C79.51 Secondary malignant neoplasm of bone; I10 Essential (primary) hypertension; E11.9 Type 2 diabetes mellitus without complications; E78.5 Hyperlipidemia, unspecified; K50.90 Crohn's disease, unspecified, without complications; M15.9 Polyosteoarthritis, unspecified; J44.9 Chronic obstructive pulmonary disease, unspecified; Z66 Do not resuscitate
CPT/HCPCS: 96365; 96361; 85025 ×3; 80048 ×3; 36415 ×2; 80076; 83690; 74177; 93970; 96372; 99285; Q9967; J1650 ×4; J7040 ×2; J7030 ×5; G0378 ×4